=== PATIENT | male | born 2005 | race Caucasian/White ===

== ENCOUNTER → 2025-02-05 | Outpatient (CLI) | payer OTHER, SELFPAY ==
--- NOTE | 2025-02-05 15:04 | XR_ITS ---
Examination: Fingers, right hand fourth digit 3 views Technique: AP, oblique, lateral views right hand fourth digit 3 views. Exam date and time: 5, 1522 hours INDICATIONS: Laceration injury to the fourth digit today, pain. FINDINGS: No fracture or dislocation. No foreign body IMPRESSION: No fracture No opaque foreign body.
== END | disposition home or self-care (01) ==
PROVIDERS: PCP Pediatrics; Referring Provider Family Medicine; Visit Provider Family Medicine
DX: S61.314A Laceration without foreign body of right ring finger with damage to nail, initial encounter (principal); X58.XXXA Exposure to other specified factors, initial encounter
CPT/HCPCS: 73140